=== PATIENT | male | born 1970 | race Caucasian/White ===

== ENCOUNTER 2020-04-17 09:13 | Outpatient (CLI) | payer OTHER, SELFPAY ==
--- NOTE | 2020-04-17 10:30 | NEURO_ITS ---
Patient Number: [id number] Impression: # Complains of numbness of upper and lower extremities. # Bilateral Carpal Tunnel Syndrome. # Mild delayed terminal latencies in feet. # Normal needle/EMG exam. # Clinical correlation recommended. Nerve Conduction Studies Anti Sensory Summary Table Stim Site NR Peak (ms) P-T Amp (?V) Site1 Site2 Delta-P (ms) Dist (cm) Ramesh (m/s) Left Median Anti Sensory (2-3nd Digit) Wrist 4.2 35.3 Wrist 2-3nd Digit 4.2 14.0 33 Wrist 4.4 49.7 Wrist 2-3nd Digit 4.2 14.0 33 Right Median Anti Sensory (2-3nd Digit) Wrist 4.1 27.9 Wrist 2-3nd Digit 4.1 14.0 34 Wrist 4.0 45.4 Wrist 2-3nd Digit 4.1 14.0 34 Left Radial Anti Sensory (Base 1st Digit) Wrist 2.8 9.1 Wrist Base 1st Digit 2.8 0.0 Right Radial Anti Sensory (Base 1st Digit) Wrist 2.6 29.9 Wrist Base 1st Digit 2.6 0.0 Left Sup Fibular Anti Sensory (Ant Lat Mall) 14 cm 3.6 16.7 14 cm Ant Lat Mall 3.6 16.0 44 Right Sup Fibular Anti Sensory (Ant Lat Mall) 14 cm 3.7 49.4 14 cm Ant Lat Mall 3.7 16.0 43 Left Sural Anti Sensory (Lat Mall) Calf 3.8 6.8 Calf Lat Mall 3.8 16.0 42 Right Sural Anti Sensory (Lat Mall) Calf 3.7 6.6 Calf Lat Mall 3.7 16.0 43 Left Ulnar Anti Sensory (5th Digit) Wrist 3.2 42.9 Wrist 5th Digit 3.2 14.0 44 Right Ulnar Anti Sensory (5th Digit) Wrist 3.2 42.7 Wrist 5th Digit 3.2 14.0 44 Motor Summary Table Stim Site NR Onset (ms) O-P Amp (mV) Site1 Site2 Delta-0 (ms) Dist (cm) Ramesh (m/s) Left Median Motor (Abd Poll Brev) Wrist 4.8 2.4 Elbow Wrist 5.5 32.0 58 Elbow 10.3 6.1 Right Median Motor (Abd Poll Brev) Wrist 4.3 1.8 Elbow Wrist 5.3 30.0 57 Elbow 9.6 1.8 Left Peroneal Motor (Vastus Med) Ankle 5.0 2.7 Popit Ankle 8.9 43.0 48 Popit 13.9 2.3 Right Peroneal Motor (Vastus Med) Ankle 4.8 1.6 Popit Ankle 8.7 42.0 48 Popit 13.5 1.7 Left Tibial Motor (Abd Corrigan Brev) Ankle 4.9 5.8 Knee Ankle 9.6 46.0 48 Knee 14.5 3.6 Right Tibial Motor (Abd Corrigan Brev) Ankle 5.2 5.1 Knee Ankle 8.8 45.0 51 Knee 14.0 2.9 Left Ulnar Motor (Abd Dig Minimi) Wrist 3.0 4.4 A Elbow Wrist 5.6 33.0 59 A Elbow 8.6 3.2 Right Ulnar Motor (Abd Dig Minimi) Wrist 3.0 5.0 A Elbow Wrist 5.5 32.0 58 A Elbow 8.5 3.8 F Wave Studies NR F-Lat (ms) L-R F-Lat (ms) Left Median (Mrkrs) (Abd Poll Brev) 32.16 0.53 Right Median (Mrkrs) (Abd Poll Brev) 31.64 0.53 Left Peroneal (Mrkrs) (EDB) 56.02 0.19 Right Peroneal (Mrkrs) (EDB) 56.21 0.19 Left Tibial (Mrkrs) (Abd Hallucis) 56.50 0.59 Right Tibial (Mrkrs) (Abd Hallucis) 55.91 0.59 Left Ulnar (Mrkrs) (Abd Dig Min) 32.81 0.00 Right Ulnar (Mrkrs) (Abd Dig Min) 32.81 0.00 EMG Side Muscle Nerve Root Ins Act Fibs Amp Dur Recrt Comment Right 1stDorInt Ulnar C8-T1 Nml Nml Nml Nml Nml Right Ext Indicis Radial (Post Int) C7-8 Nml Nml Nml Nml Nml Right Ext Digitorum Radial (Post Int) C7-8 Nml Nml Nml Nml Nml Right BrachioRad Radial C5-6 Nml Nml Nml Nml Nml Right PronatorTeres Median C6-7 Nml Nml Nml Nml Nml Right Abd Poll Brev Median C8-T1 Nml Nml Nml Nml Nml Right AntTibialis Dp Br Fibular L4-5 Nml Nml Nml
== END 2020-04-17 09:14 | disposition home or self-care (01) ==
PROVIDERS: PCP Family Medicine; Visit Provider Family Medicine
DX: G56.03 Carpal tunnel syndrome, bilateral upper limbs (principal)
CPT/HCPCS: 95886; 95913

== ENCOUNTER 2023-07-08 01:59 | Day surgery (SDC) | payer OTHER, SELFPAY ==
--- NOTE | 2023-07-01 16:56 | PM.HPGS ---
History of Present Illness History of Present Illness Consent: Risks, benefits, and alternatives have been discussed and questions answered. Patient agrees to proceed with procedure. Chief complaint: right spermatocele Narrative: Vincent Mccauley is a 53 year old male recently as a presented to our practice with a 3-4 month history of right scrotal swelling. He notices by incidental examination. for sometime in May 2023 where physical exam was consistent with a 3-4 cm spermatocele. After discussion of therapeutic options he has elected for a spermatocelectomy. discussed alternative options including observation aspiration. He is aware the risks of this procedure including, but not limited to, recurrence of scrotal swellings, incisional infection and scrotal hematoma. Review of Systems Cardiovascular: Cardiovascular: Denies chest pain, Denies lightheadedness, Denies palpitations and Denies dyspnea Respiratory: Respiratory: Denies dyspnea Gastrointestinal: Gastrointestinal: Denies diarrhea, Denies nausea and Denies vomiting Genitourinary: Genitourinary: Denies hematuria and Denies dysuria Endocrine: Endocrine: Denies palpitations [facility] Past Medical History Medical History (Updated 07/01/23 @ 17:00 by Edis Mesa MD) GERD (gastroesophageal reflux disease) Hypothyroidism Neuropathy right foot Surgical History Surgical History History of cholecystectomy 2008 S/P trigger finger release Right middle finger [place] teeth removed Family History Family History Mother Hypertension Carcinoma of colon Metastatic lung carcinoma Social History Social History Smoking packs per day: 1 Smoking cigarettes per day: 20.0 Years smoked: 16 Smoking pack-years: 16.00 Smoking status: Former smoker Tobacco type: cigarettes Alcohol intake: current Alcohol use details: Social Substance use: never Substance use type: does not use Lack of Transportation: No Lack of Food: Never True Current Housing: I Have Housing Concerned About Future Housing: No Difficulty Paying Gas/Electric Bills: No Difficulty Paying for Meds: No Currently Unemployed: No Education: High School Diploma/GED Living arrangements: with family Occupation/Education: occupation Gender identity (if verbalized by the patient): Male Sexual Orientation (if Verbalized by the Patient): Straight or Heterosexual Spiritual care concerns: No Meds Home Medications and Allergies Home Medications Medication Instructions Recorded Confirmed Type gabapentin 300 mg capsule 300 mg PO PRN PRN Pain 09/10/20 06/21/23 History ascorbic acid (vitamin C) 500 mg mg PO 08/19/22 06/21/23 History capsule cholecalciferol (vitamin D3) 125 125 mcg PO DAILY 08/19/22 06/21/23 History mcg (5,000 unit) capsule mecobalamin (vitamin B12) 1,000 1,000 mcg PO DAILY 08/19/22 06/21/23 History mcg chewable tablet multivitamin 1 tablet PO DAILY 08/19/22 06/21/23 History omega 3-ycu-jwz-fish oil 1,000 mg 2 cap PO DAILY 08/19/22 06/21/23 History (120 mg-180 mg) capsule (Fish Oil) mometasone 0.1 % topical cream 1 applic topical .twice daily PRN 08/20/22 06/21/23 Rx rash #45 grams levothyroxine 50 mcg tablet 50 mcg PO DAILY #90 tabs 02/15/23 06/21/23 Rx amlodipine 5 mg tablet 5 mg PO DAILY #90 tabs 06/21/23 06/21/23 Rx lisinopril 20 mg tablet 20 mg PO DAILY #90 tabs 06/21/23 06/21/23 Rx Allergies Allergy/AdvReac Type Severity Reaction Status Date / Time No Known Allergies Allergy Verified 06/21/23 13:41 Exam Const: General: no acute distress Resp: Effort & Inspection: normal respiratory effort GI: Inspection: non-distended GI Palp: No abdominal tenderness and No Guarding due to palpation present (GI) Auscultation: normal bowel sounds :
[2023-07-06 10:06] VITALS: BMI 34.0
--- NOTE | 2023-07-06 10:26 | PC.NURSE ---
Report to the Outpatient Waiting Room, entrance under the green pavilion located off [facility], at 0600 on 07-08-23. Planned Procedure Time: 0730. Time changes happen often and if your time is changed the preop area will call you the afternoon before. - You and your visitor will be asked to self-screen and do not enter if you have any COVID symptoms. - A mask is optional within the hospital at this time. Patients may have clear liquids (water, carbonated beverages, clear teas, apple juice) until 3 hours prior to surgery with a maximum of 20 ounces. 0430 - No food from midnight until time of surgery - Infants may have breast milk until 4 hours before surgery, formula 6 hours prior to surgery. - Children will be allowed to drink immediately following surgery. If applicable, please bring a bottle or sippy cup to assist with drinking. Juice, water, soda, and popsicles are readily available. For infants on formula, please bring formula the day of surgery. Pacifiers are allowed. Take the following medications with a SIP of water the morning of surgery: levothyroxine, amlodipine DO NOT STOP ANY OF YOUR OTHER PRESCRIPTION MEDICATIONS PRIOR TO SURGERY ?EXCEPT THE FOLLOWING Medications to discontinue per physician: vitamins and supplements Date to take last dose: 07-06-23 Please no make-up, nail congolese, hairspray, perfume, deodorant, or body powder the day of surgery. No jewelry (including any body piercings) or valuables the day of surgery, leave them at home. Please take a shower or bath the night before, or the morning of, surgery with an antibacterial soap. Wear comfortable, loose fitting clothing. Children are encouraged to wear pajamas. - Jewelry must be removed prior to entering the operating room. Rings and piercings that are not removed may be cut off. - The hospital will not accept responsibility for valuables. - Please leave all valuables, including medications, at home the day of surgery. If you are going home after surgery, a licensed local hazmat driver must drive you home. - NO public transportation without another adult if you receive anesthesia. - We recommend that an adult stay with you for 24 hours following discharge. - We also recommend that you do not drive, make important decision, drink alcoholic beverages, or take any drugs that were not prescribed by your health care provider for at least 24 hours after your discharge time. For Pediatric surgeries, we recommend two adults accompany the child home. Follow any additional instructions given to you from your surgeon. If you or anyone in your household have experienced Covid symptoms in the past week, please notify your surgeon or the nurse liaison at the phone number below for possible testing. Telephone instructions given to Hans Mccauley and asked if any additional questions and then verbalized understanding. Patient advised to call surgeon office or pre surgery nurse liaison [phone] if any additional questions.
[2023-07-08] VITALS (9 sets, daily range): BP systolic 108–134; BP diastolic 64–82; PULSE 55–74; RESP 12–18; TEMP 36.2–36.6; O2SAT 94–97; BMI 33.9
--- NOTE | 2023-07-08 05:51 | ECG_ITS ---
Measurements Intervals [place] Rate: 53 P: 33 UT: 174 QRS: 12 QRSD: 101 T: 31 QT: 434 QTc: 408 Interpretive Statements SINUS BRADYCARDIA NO PREVIOUS ECG AVAILABLE FOR COMPARISON Electronically Signed On 07-08-2023 9:21:01 [employer] by Ivet Nguyen M.D.
--- NOTE | 2023-07-08 06:37 | WPDANESEPPF ---
Anes - Initial Pre Proc Eval Procedure: Operation Date: 07/08/23 07:30 Proposed Procedures p Right Spermatocelectomy - Edis Mesa MD Date/Time: 07/08/23 06:37 Surgeon: Edis Mesa MD Pre Op Diagnosis: right spermatocele Patient Data Age: 53 Gender: M Height: 1.91 m Weight: 123.38 kg Allergies Allergy/AdvReac Type Severity Reaction Status Date / Time No Known Allergies Allergy Verified 07/08/23 06:19 Home Medications Medication Instructions Recorded Confirmed Type gabapentin 300 mg capsule 300 mg PO PRN PRN Pain 09/10/20 07/08/23 History ascorbic acid (vitamin C) 500 mg 1,500 mg PO DAILY 08/19/22 07/08/23 History capsule cholecalciferol (vitamin D3) 125 125 mcg PO DAILY 08/19/22 07/08/23 History mcg (5,000 unit) capsule mecobalamin (vitamin B12) 1,000 1,000 mcg PO DAILY 08/19/22 07/08/23 History mcg chewable tablet multivitamin 1 tablet PO DAILY 08/19/22 07/08/23 History omega 5-fik-bty-fish oil 1,000 mg 2 cap PO DAILY 08/19/22 07/08/23 History (120 mg-180 mg) capsule (Fish Oil) mometasone 0.1 % topical cream 1 applic topical .twice daily PRN 08/20/22 07/08/23 Rx rash #45 grams levothyroxine 50 mcg tablet 50 mcg PO DAILY #90 tabs 02/15/23 07/08/23 Rx amlodipine 5 mg tablet 5 mg PO DAILY #90 tabs 06/21/23 07/08/23 Rx lisinopril 20 mg tablet 20 mg PO DAILY #90 tabs 06/21/23 07/08/23 Rx Patient hx anesthesia problems: none Family hx anesthesia problems: none Results Review: All pre-operative results and documents have been reviewed as part of the pre-operative evaluation. [facility] Past Medical History Medical History (Updated 07/01/23 @ 17:00 by Edis Mesa MD) GERD (gastroesophageal reflux disease) Hypothyroidism Neuropathy right foot Surgical History Surgical History History of cholecystectomy 2008 S/P trigger finger release Right middle finger [place] teeth removed Family History Family History Mother Hypertension Carcinoma of colon Metastatic lung carcinoma Social History Social History Smoking packs per day: 1.5 Smoking cigarettes per day: 30.0 Years smoked: 16 Smoking pack-years: 24.00 Smoking status: Former smoker Tobacco type: cigarettes Smoking end date: 07/05/98 Alcohol intake: never Alcohol use details: Social Substance use: never Substance use type: does not use Lack of Transportation: No Lack of Food: Never True Current Housing: I Have Housing Concerned About Future Housing: No Difficulty Paying Gas/Electric Bills: No Difficulty Paying for Meds: No Currently Unemployed: No Education: High School Diploma/GED Living arrangements: with family Occupation/Education: occupation Gender identity (if verbalized by the patient): Male Sexual Orientation (if Verbalized by the Patient): Straight or Heterosexual Spiritual care concerns: No Anes - Eval Final PreProcedure Day of Procedure 07/08/23 06:37 Patient weight: obese Heart: regular rate and rhythm Lungs: clear to auscultation Airway: Mallampati scale class II Neurological: alert and oriented Last oral intake: >/= 8 hours ASA classification: III Emergent: no Anesthetic plan: proceed Anesthesia type and monitoring: general LMA and standard monitoring Results Review: All pre-operative results and documents have been reviewed as part of the pre-operative evaluation. Informed Consent: The patient's anesthetic plan and its attendant risks and benefits were discussed with the patient/family/POA. Questions were solicited and answers provided to the satisfaction of the patient/family/POA.
--- NOTE | 2023-07-08 06:55 | WPDHPUPDATE1 ---
History and Physical Update Update Date/Time: 07/08/23 06:55 History and Physical has been reviewed, including an updated exam of the patient. There are NO changes in the patient's condition. Risks, benefits, and alternatives have been discussed and questions answered. Patient agrees to proceed with procedure.
[2023-07-08] MEDS: ceFAZolin 3 GM/D5W 100 ML 100 ML IVPB (07:27)
[2023-07-08] MEDS: LACTATED RINGERS 1,000 ML 30 ML IV CONT ×2 (07:30→08:06)
[2023-07-08] MEDS: LIDOCAINE HCL 1% LOCAL INJ 20 ML VIAL 5 ML INFILTRATE (07:57)
--- NOTE | 2023-07-08 08:13 | W.PM.PROC2 ---
Procedure Note - Detailed Date of Procedure 07/08/23 Pre-op Diagnosis Right spermatocele Post-op Diagnosis Same Procedure Performed Right spermatocelectomy Surgeon Edis Mesa MD Anesthesia General Description of Procedure The patient was brought to the operative suite where he was prepped and draped in routine sterile fashion while in a supine position after the uneventful induction of a general LMA anesthetic. An incision was made in the median raphe of the scrotum and dissection was carried into the right tunica vaginalis. There is no appreciable hydrocele but a moderate-large right spermatocele arising from the epididymis. This spermatocele is dissected from the spermatic cord and testicle to its origin from the epididymis. It is transected at its origin with care taken to avoid any injury to the testicle or epididymis. Care was taken to avoid compromise to vessels in the spermatic cord. The testicle was examined and found to be both visibly and palpably normal. The testicle was restore returned to an orthotopic positioned. The dartos muscle was closed with a running 4-0 chromic and the skin was likewise closed with a running 4-0 chromic. Estimated blood loss throughout this procedure was []cc. Patient tolerated the procedure well and was taken to the recovery room in good condition. Estimated Blood Loss 5.0 Pathology None sent Complications No immediate complications
[2023-07-08] MEDS: oxyCODONE HCL (*CRX) 5 MG TAB IR PO (09:29)
== END 2023-07-08 10:20 | disposition home or self-care (01) ==
PROVIDERS: PCP Family Medicine; Visit Provider Urology
PROC: (CPT 54840; principal; 2023-07-08 07:30)
DX: N43.41 Spermatocele of epididymis, single (principal); E03.9 Hypothyroidism, unspecified; K21.9 Gastro-esophageal reflux disease without esophagitis; G62.9 Polyneuropathy, unspecified; Z87.891 Personal history of nicotine dependence; E66.9 Obesity, unspecified; Z68.33 Body mass index [BMI] 33.0-33.9, adult
CPT/HCPCS: 54840; 88304; 93005; A9270; J0690; J1100; J2250; J2405; J2704; J3010; J7120

== ENCOUNTER 2023-09-15 00:20 | Day surgery (SDC) | payer OTHER, SELFPAY ==
[2023-08-23 11:46] VITALS: BMI 33.1
--- NOTE | 2023-09-13 10:57 | SUR.PREOP ---
Patient called regarding upcoming procedure. Reviewed preop instructions, appointment times, and procedure prep.
[2023-09-15 08:12] VITALS: BP 127/85; PULSE 71; RESP 18; TEMP 36.1; O2SAT 98
[2023-09-15] MEDS: LACTATED RINGERS 1,000 ML 150 ML IV CONT (08:21)
--- NOTE | 2023-09-15 08:54 | PM.HPGS ---
History of Present Illness History of Present Illness Consent: Risks, benefits, and alternatives have been discussed and questions answered. Patient agrees to proceed with procedure. Chief complaint: neoplasm screening Narrative: Vincent Mccauley is a 53 year old male here for first screening colonoscopy Review of Systems Constitutional: Constitutional: Denies headache(s) and Denies weakness Eyes: Eyes: Denies blurry vision ENT: Reports Normal hearing present, Denies headache(s) and Denies neck pain Cardiovascular: Cardiovascular: Denies chest pain and Denies dyspnea Respiratory: Respiratory: Denies dyspnea Gastrointestinal: Gastrointestinal: Reports no additional gastrointestinal complaints Genitourinary: Genitourinary: Denies dysuria Musculoskeletal: Musculoskeletal: Denies neck pain Integumentary/Breasts: Skin/Breast: Denies dry skin Neurologic: Reports Normal hearing present, Denies headache(s) and Denies weakness Psychiatric: Psychiatric: Denies anxiety Endocrine: Endocrine: Denies change in body appearance Hematologic/Lymphatic: Hematologic/Lymphatic: Denies easy bleeding Allergic/Immunologic: Allergic/Immunologic: Denies urticaria PMFSH Past Medical History Medical History (Updated 07/16/23 @ 13:41 by Derik Navarrete MD) GERD (gastroesophageal reflux disease) Hypothyroidism Mixed hyperlipidemia Neuropathy right foot Spermatocele of epididymis Surgical History Surgical History (Updated 07/16/23 @ 13:38 by Derik Navarrete MD) History of cholecystectomy 2008 History of surgery Spermatocelectomy on 07/08/2023 S/P trigger finger release Right middle finger [place] teeth removed Family History Family History Mother Hypertension Carcinoma of colon Metastatic lung carcinoma Social History Social History Smoking packs per day: 1.5 Smoking cigarettes per day: 30.0 Years smoked: 16 Smoking pack-years: 24.00 Smoking status: Former smoker Tobacco type: cigarettes Smoking end date: 07/05/98 Alcohol intake: never Alcohol use details: Social Substance use: never Substance use type: does not use Lack of Transportation: No Lack of Food: Never True Current Housing: I Have Housing Concerned About Future Housing: No Difficulty Paying Gas/Electric Bills: No Difficulty Paying for Meds: No Currently Unemployed: No Education: High School Diploma/GED Living arrangements: with family Occupation/Education: occupation Gender identity (if verbalized by the patient): Male Sexual Orientation (if Verbalized by the Patient): Straight or Heterosexual Spiritual care concerns: No Meds Home Medications and Allergies Home Medications Medication Instructions Recorded Confirmed Type gabapentin 300 mg capsule 300 mg PO PRN PRN Pain 09/10/20 08/23/23 History ascorbic acid (vitamin C) 500 mg 1,500 mg PO DAILY 08/19/22 08/23/23 History capsule cholecalciferol (vitamin D3) 125 125 mcg PO DAILY 08/19/22 08/23/23 History mcg (5,000 unit) capsule mecobalamin (vitamin B12) 1,000 1,000 mcg PO DAILY 08/19/22 08/23/23 History mcg chewable tablet multivitamin 1 tablet PO DAILY 08/19/22 08/23/23 History omega 6-cbw-mis-fish oil 1,000 mg 2 cap PO DAILY 08/19/22 08/23/23 History (120 mg-180 mg) capsule (Fish Oil) mometasone 0.1 % topical cream 1 applic topical .twice daily PRN 08/20/22 08/23/23 Rx rash #45 grams levothyroxine 50 mcg tablet 50 mcg PO DAILY #90 tabs 02/15/23 08/23/23 Rx amlodipine 5 mg tablet 5 mg PO DAILY #90 tabs 06/21/23 08/23/23 Rx lisinopril 20 mg tablet 20 mg PO DAILY #90 tabs 06/21/23 08/23/23 Rx Allergies Allergy/AdvReac Type Severity Reaction Status Date / Time No Known Allergies Allergy Verified 09/15/23 08:11 Vital Signs Vital Signs - 24 hr 09/15/23 08:12 Temperature 97 F L Pulse Rate
--- NOTE | 2023-09-15 09:03 | WPDANESEPPF ---
Anes - Initial Pre Proc Eval Procedure: Operation Date: 09/15/23 09:30 Proposed Procedures p Screening Colonoscopy - Alex Sarabia MD Date/Time: 09/15/23 09:03 Surgeon: Alex Sarabia MD Pre Op Diagnosis: neoplasm screening Patient Data Age: 53 Gender: M Height: 1.91 m Weight: 119.8 kg Last Vital Signs Temp 97 F L 09/15/23 08:12 Pulse 71 09/15/23 08:12 Resp 18 09/15/23 08:12 BP 127/85 09/15/23 08:12 Pulse Ox 98 09/15/23 08:12 O2 Del Method Room Air 09/15/23 08:12 Allergies Allergy/AdvReac Type Severity Reaction Status Date / Time No Known Allergies Allergy Verified 09/15/23 08:11 Home Medications Medication Instructions Recorded Confirmed Type gabapentin 300 mg capsule 300 mg PO PRN PRN Pain 09/10/20 08/23/23 History ascorbic acid (vitamin C) 500 mg 1,500 mg PO DAILY 08/19/22 08/23/23 History capsule cholecalciferol (vitamin D3) 125 125 mcg PO DAILY 08/19/22 08/23/23 History mcg (5,000 unit) capsule mecobalamin (vitamin B12) 1,000 1,000 mcg PO DAILY 08/19/22 08/23/23 History mcg chewable tablet multivitamin 1 tablet PO DAILY 08/19/22 08/23/23 History omega 8-qrl-ect-fish oil 1,000 mg 2 cap PO DAILY 08/19/22 08/23/23 History (120 mg-180 mg) capsule (Fish Oil) mometasone 0.1 % topical cream 1 applic topical .twice daily PRN 08/20/22 08/23/23 Rx rash #45 grams levothyroxine 50 mcg tablet 50 mcg PO DAILY #90 tabs 02/15/23 08/23/23 Rx amlodipine 5 mg tablet 5 mg PO DAILY #90 tabs 06/21/23 08/23/23 Rx lisinopril 20 mg tablet 20 mg PO DAILY #90 tabs 06/21/23 08/23/23 Rx Patient hx anesthesia problems: none Family hx anesthesia problems: none Results Review: All pre-operative results and documents have been reviewed as part of the pre-operative evaluation. PMFSH Past Medical History Medical History (Updated 07/16/23 @ 13:41 by Derik Navarrete MD) GERD (gastroesophageal reflux disease) Hypothyroidism Mixed hyperlipidemia Neuropathy right foot Spermatocele of epididymis Surgical History Surgical History (Updated 07/16/23 @ 13:38 by Derik Navarrete MD) History of cholecystectomy 2007 History of surgery Spermatocelectomy on 07/08/2023 S/P trigger finger release Right middle finger [place] teeth removed Family History Family History Mother Hypertension Carcinoma of colon Metastatic lung carcinoma Social History Social History Smoking packs per day: 1.5 Smoking cigarettes per day: 30.0 Years smoked: 16 Smoking pack-years: 24.00 Smoking status: Former smoker Tobacco type: cigarettes Smoking end date: 07/05/98 Alcohol intake: never Alcohol use details: Social Substance use: never Substance use type: does not use Lack of Transportation: No Lack of Food: Never True Current Housing: I Have Housing Concerned About Future Housing: No Difficulty Paying Gas/Electric Bills: No Difficulty Paying for Meds: No Currently Unemployed: No Education: High School Diploma/GED Living arrangements: with family Occupation/Education: occupation Gender identity (if verbalized by the patient): Male Sexual Orientation (if Verbalized by the Patient): Straight or Heterosexual Spiritual care concerns: No Anes - Eval Final PreProcedure Day of Procedure 09/15/23 09:03 Patient weight: obese Heart: regular rate and rhythm Lungs: clear to auscultation Airway: Mallampati scale class II Neurological: alert and oriented Last oral intake: >/= 8 hours ASA classification: III Emergent: no Anesthetic plan: proceed Anesthesia type and monitoring: general GIVS and standard monitoring Results Review: All pre-operative results and documents have been reviewed as part of the pre-operative evaluation. Informed Consent: The patient's anesthetic plan and its attendant risks an
[2023-09-15 09:34] VITALS: BP 113/76; PULSE 84; RESP 17; O2SAT 98
[2023-09-15 09:44] VITALS: BP 120/76; PULSE 78; RESP 17; O2SAT 96
[2023-09-15 09:49] VITALS: BP 120/76; PULSE 77; RESP 14; O2SAT 96
== END 2023-09-15 10:10 | disposition home or self-care (01) ==
PROVIDERS: PCP Family Medicine; Visit Provider Internal Medicine Gastroenterology
PROC: 0DJD8ZZ Inspection of Lower Intestinal Tract, Via Natural or Artificial Opening Endoscopic (ICD-10-PCS; CPT 45378; principal; 2023-09-15 09:30)
DX: Z12.11 Encounter for screening for malignant neoplasm of colon (principal); D12.2 Benign neoplasm of ascending colon; D12.3 Benign neoplasm of transverse colon; D12.4 Benign neoplasm of descending colon; D12.5 Benign neoplasm of sigmoid colon; E78.2 Mixed hyperlipidemia; E03.9 Hypothyroidism, unspecified; K21.9 Gastro-esophageal reflux disease without esophagitis; G62.9 Polyneuropathy, unspecified; Z87.891 Personal history of nicotine dependence; E66.9 Obesity, unspecified; Z68.33 Body mass index [BMI] 33.0-33.9, adult
CPT/HCPCS: 45385; 88305; J2704; J7120

== ENCOUNTER 2025-06-04 12:08 | Emergency (ER) | payer OTHER, SELFPAY ==
--- NOTE | ~2025-06-04 | CT_ITS ---
EXAMINATION: CT abdomen pelvis wo con DATE: 06/04/2025 15:04 INDICATION: Left flank pain TECHNIQUE: Computed tomography (CT) of the chest was performed without intravenous contrast. The dose-length product was 410.33 mGy-cm. Automated exposure control and iterative reconstruction technique were employed. COMPARISON: None FINDINGS: Lung bases unremarkable. Heart size normal. No significant pleural or pericardial effusion. There is a small low-density lesion in the left kidney, most likely benign cysts. Status post cholecystectomy. The liver, spleen, pancreas, adrenal glands and right kidney are unremarkable. No ureteral or renal stones. Nonobstructive bowel gas pattern. Normal appendix. No significant vascular abnormality. No lymphadenopathy. No abnormal pelvic masses or fluid collections. No evidence for hernia. There is mild-moderate thoracic and lumbar spondylosis. No acute osseous abnormality. IMPRESSION: 1. No acute abdominal abnormality. Reviewed, dictated and finalized at location O. ITORY KEEPER
[2025-06-04 12:18] VITALS: BP 160/77; PULSE 55; RESP 16; TEMP 36.2; O2SAT 100
--- OUTSIDE RECORDS SUMMARY | 2025-06-04 13:29 | XMS_ITS | Clinical Summary ---
Author Organization [facility] Address [address] [place] [id number] Care Team Providers Care Adobe Layer Helper Name Role Phone Derik Navarrete MD Primary Care Provider [phone] Allergies No known active allergies Medications levothyroxine 50 MCG tablet Take 50 mcg by mouth every morning. 11/05/2021 Active fish oil 1000 MG Cap capsule Take 1,000 mg by mouth daily. unsure Active Cholecalciferol (VITAMIN D) 50 MCG (2000 UT) Tab Unsure of dose Active Cyanocobalamin (VITAMIN B-12) 50 MCG Tab Unsure of dose Active Ascorbic Acid (VITAMIN C) 100 MG tablet Take 500 mg by mouth daily. Unsure of dose Active Active Problems No known active problems Family History Medical History Relation Comments Cancer Maternal Grandfather colon Cancer Mother colon Relation Status Comments Maternal Grandfather Mother Social History Tobacco Use Types Packs/Day Years Used Date Smoking Tobacco: Former Cigarettes 1 3 - 1998 Smokeless Tobacco: Never Tobacco Cessation:Counseling Given: Yes Comments:non smoker Alcohol Use Standard Drinks/Week Comments Not Currently 0 (1 standard drink = 0.6 oz pur e alcohol) PHQ-2 Answer Date Recorded PHQ-2 Score - If the patient scores above 3, please move on to questions 3-9 0 01/12/2022 Sex and Gender Information Value Date Recorded Sex Assigned at Not on file Legal Sex Male 11:27 AM CDT Gender Identity Not on file Sexual Orientation Not on file Last Filed Vital Signs Vital Sign Reading Time Taken Comments Blood Pressure 160/93 01/12/2022 8:39 AM CDT Pulse 55 01/12/2022 8:39 AM CDT Temperature 36.7 C (98 F) 01/12/2022 8:38 AM CDT Respiratory Rate 22 01/12/2022 8:38 AM CDT Oxygen Saturation 100% 01/12/2022 8:38 AM CDT Inhaled Oxygen Concentration - - Weight 123.8 kg (273 lb) 01/12/2022 8:38 AM CDT Height 190.5 cm (6' 3) 01/12/2022 8:38 AM CDT Body Mass Index 34.12 01/12/2022 8:38 AM CDT Plan of Treatment Health Maintenance Due Date Last Done Comments Colorectal Cancer Screening Colonoscopy (10 Years) 1968 Annual Physical 01/31/1971 Hepatitis C 01/31/1986 Hepatitis A Vaccines (1 of 2 - Risk 2-dose series) 01/31/1987 Hepatitis B Vaccines (1 of 3 - 19+ 3-dose series) 01/31/1987 Pneumococcal Vaccine: 50+ Years (1 of 1 - PCV) 01/31/2018 Zoster Vaccines (1 of 2) 01/31/2018 COVID-19 Vaccine (3 - 2024-2 6 season) 2025 10/22/2020, 10/03/2020 Influenza Adult (#1) 2025 05/08/2017 DTaP, Tdap and Td Vaccines ( 2 - Td or Tdap) 08/09/2030 08/09/2020 Meningococcal B Vaccine Aged Out No l onger eligible based on patient's age to complete this topic Meningococcal Vaccine Aged Out No jeovanny robert eligible based on patient's age to complete this topic RSV Immunizations Under 20 Months Aged Out No longer eligible b ased on patient's age to complete this topic Insurance [employer] Care Teams Adobe Layer Helper Relationship Specialty Start Date End Date Derik Navarrete MD [address] [place] [address] PCP - General FAMILY PRACTICE 11/24/21
--- OUTSIDE RECORDS SUMMARY | 2025-06-04 14:32 | XMS_ITS | Clinical Summary ---
Author Organization [facility] Address [address] [place] [id number] Care Team Providers Care Cloth Baler Name Role Phone Derik Navarrete MD Primary Care Provider [phone] Allergies No known active allergies Medications levothyroxine [...] complete this topic Insurance [employer] Care Teams Cloth Baler Relationship Specialty Start Date End Date Derik Navarrete MD [address] [place] [address] PCP - General FAMILY PRACTICE 11/24/21
--- NOTE | 2025-06-04 14:58 | ED.BACK ---
HPI - Back Pain/Injury General Chief Complaint: Back Pain/Injury Stated Complaint: lower back pain, left sided Time Seen by Provider: 06/04/25 13:08 Source: patient Mode of arrival: ambulatory Limitations: no limitations History of Present Illness HPI Narrative: Patient is a 55-year-old male who presents the ED with report of left lower back pain. Patient reports having pain for the past 1 week. States pain has been persistent, denies aggravating or alleviating factors. Has tried taking ibuprofen at home without improvement. Denies any fall or injury. Denies radiation of pain down leg. Does report slight discoloration and malodor to urine, but denies hematuria, dysuria. Denies abdominal pain, nausea, vomiting, bowel or bladder incontinence, numbness. Denies history of kidney stones. Related Data Home Medications ?Medication ?Instructions ?Recorded ?Confirmed ?Last Taken ?Type gabapentin 300 mg capsule 300 mg PO PRN PRN Pain 09/10/20 05/02/24 07/07/23 History ascorbic acid (vitamin C) 500 mg 1,500 mg PO DAILY 08/19/22 05/02/24 07/04/23 History capsule cholecalciferol (vitamin D3) 125 125 mcg PO DAILY 08/19/22 05/02/24 07/04/23 History mcg (5,000 unit) capsule mecobalamin (vitamin B12) 1,000 1,000 mcg PO DAILY 08/19/22 05/02/24 07/04/23 History mcg chewable tablet multivitamin 1 tablet PO DAILY 08/19/22 05/02/24 07/04/23 History omega 1-dpw-ldt-fish oil 1,000 mg 2 cap PO DAILY 08/19/22 05/02/24 07/04/23 History (120 mg-180 mg) capsule (Fish Oil) Allergies Allergy/AdvReac Type Severity Reaction Status Date / Time No Known Allergies Allergy Verified 06/04/25 12:21 Review of Systems Review of Systems: All systems reviewed & are unremarkable except as noted in HPI. All systems reviewed & are unremarkable except as noted in HPI and below PMFSH Past Medical History Medical History Mixed hyperlipidemia Spermatocele of epididymis GERD (gastroesophageal reflux disease) Neuropathy right foot Hypothyroidism Surgical History Surgical History History of surgery Spermatocelectomy on 07/08/2023 [place] teeth removed History of cholecystectomy 2007 S/P trigger finger release Right middle finger Family History Family History Mother Hypertension Carcinoma of colon Metastatic lung carcinoma Social History Social History Smoking packs per day: 1.5 Smoking cigarettes per day: 30.0 Years smoked: 16 Smoking pack-years: 24.00 Smoking status: Former smoker Tobacco type: cigarettes Smoking end date: 07/05/98 Alcohol intake: never Alcohol use details: Social Substance use: never Substance use type: does not use Lack of Transportation: No Lack of Food: Never True Current Housing: I Have Housing Concerned About Future Housing: No Difficulty Paying Gas/Electric Bills: No Difficulty Paying for Meds: No Currently Unemployed: No Education: High School Diploma/GED Living arrangements: with family Occupation/Education: occupation Gender identity (if verbalized by the patient): Male Sexual Orientation (if Verbalized by the Patient): Straight or Heterosexual Spiritual care concerns: No Exam Narrative: GENERAL: Well appearing, well-nourished, non-toxic, in no acute distress. HEAD: Normocephalic, atraumatic. RESPIRATORY: Airway patent, respirations nonlabored. CARDIOVASCULAR: Regular rate and rhythm ABDOMINAL: Soft, nontender, nondistended. Normoactive BS. MUSCULOSKELETAL: Moves all extremities. No gross deformities. Mild tenderness to palpation in left flank/lumbosacral region. No midline lumbar spinal tenderness. No palpable bony deformities or step-offs. SKIN: Warm, dry, normal color. NEURO: A&O X3. Speech clear. Cranial nerves II-XII grossly intact. Steady gait. No ataxic movements. PSYCHIATRIC: Appropriate mood and affect. Normal interaction. Course Vital Signs Vital signs: Vital Signs Temperature 97.1 F L 06/04/25 12:18 Pulse Rate 55 L 06/04/25 12:18 Respiratory Rate 16 06/04/25 12:18 Blood Pressure 160/77 H 06/04/25 12:18 Pulse Oximetry 100 06/04/25 12:18 Oxygen Delivery Room Air 06/04/25 12:18 Temperature 98.1 F 06/04/25 16:33 Pulse Rate 55 L 06/04/25 16:33 Respiratory Rate 16 06/04/25 16:33 Blood Pressure 145/85 H 06/04/25 16:33 Pulse Oximetry 99 06/04/25 16:33 Oxygen Delivery Room Air 06/04/25 12:18 MDM - Back Pain/Injury MDM Narrative Medical decision making narrative: Patient presented to ED with 1 week history of left lower back pain, associated with some urinary complaints. Reports history of UTI, denies history of kidney stone. Vital signs stable upon arrival. Patient in no acute distress. Afebrile. Basic laboratory studies are fairly unremarkable. Cbc without leukocytosis or significant anemia. Creatinine 1.49. No records to compare to. UA without evidence of infection. CT scan of abdomen/pelvis was obtained and unremarkable. No significant abnormalities. No ureterolithiasis. No concerning findings. Mild spondylosis changes. Suspect musculoskeletal etiology. Will discharge with course of muscle relaxers, lidocaine patches. Advised to continue anti-inflammatories. Recommended follow-up with PCP for further evaluation. Patient in agreement w/ plan. Discharged in stable condition Medical Records Attestation: I reviewed the patient's medical records. Lab Data Attestation: I reviewed the patient's lab results. 06/04/25 14:51 06/04/25 14:51 Labs: Lab Results 06/04/25 06/04/25 Range/Units 14:50 14:51 WBC 4.3 L (4.5-10.0) K/mm3 RBC 5.13 (4.6-6.20) M/mm3 Hgb 15.5 (14.0-18.0) g/dL Hct 46.2 (42.0-52.0) % MCV 90.1 (80-100) fl MCH 30.2 (26-34) pg MCHC 33.5 (32-36) g/dl RDW 12.2 (11.5-14.5) % Plt Count 183 (150-375) k/mm3 MPV 10.0 (7.4-10.4) fl Immature Gran % (Auto) 0.2 (0-0.5) % Neut % (Auto) 51.8 (45.5-73.1) % Lymph % (Auto) 35.3 (18.3-44.2) % [place] % (Auto) 10.4 H (2.6-8.5) % Eos % (Auto) 1.6 (0-4.4) % Baso % (Auto) 0.7 (0.2-1.2) % Lymph # (Auto) 1.53 (0.9-3.2) K/mm3 [place] # (Auto) 0.5 (0.1-0.6) K/mm3 Eos # (Auto) 0.1 (0-0.3) K/mm3 Baso # (Auto) 0.0 (0.0-0.1) K/mm3 Abs Immat Gran (auto) 0.01 (0.00-0.031) K/mm3 Absolute Neuts (auto) 2.2 (1.3-6.7) K/mm3 Absolute Nucleated RBC 0.000 (0.0-0.012) K/mm3 Nucleated RBC % 0.0 (0.0-0.2) % Sodium 140 (137-145) mmol/L Potassium 4.0 (3.4-5.0) mmol/L Chloride 103 (98-107) mmol/L Carbon Dioxide 30 (22-30) mmol/L Anion Gap 7 (4-12) mmol/L BUN 19 (9-20) mg/dL Creatinine 1.49 H (0.7-1.3) mg/dL Estim Creat Clear Calc 68 ml/min Estimated GFR 49 L (59 - ) Glucose 88 (65-110) mg/dL Calcium 8.7 (8.4-10.2) mg/dL Urine Color Yellow (Yellow) Urine Appearance Clear (Clear) Urine pH 8.0 (5.0-9.0) Ur Specific [place] 1.011 (1.001-1.035) Urine Protein Negative (Negative) mg/dL Urine Glucose (UA) Negative (Negative) mg/dL Urine Ketones Negative (Negative) mg/dL Ur Blood (Man) Negative (Negative) Urine Nitrate Negative (Negative) Urine Bilirubin Negative (Negative) Urine Urobilinogen 0.2 (<2.0) mg/dL Leukocyte Esterase Rfl Negative (Negative) SYLVIA/UL Imaging Data Attestation: I personally reviewed and interpreted this imaging study as follows: Radiologist's impression: ITS Impressions Abdomen/Pelvis CT 06/04/25 15:06 IMPRESSION: 1. No acute abdominal abnormality. Discharge Plan Discharge Clinical Impression: Left lumbar pain Patient Disposition: Home Condition: Stable Instructions: Antibiotic Form, Low Back Strain (ED), Acute Low Back Pain (ED), Flank Pain (ED) Additional Instructions: Your workup here was reassuring. Continue Tylenol and Ibuprofen as needed for pain. You may use ice/heat, lidocaine patches to area of pain. Take muscle relaxers as needed and prescribed. Recommend taking these at night as they may cause sedation. Do not drive, operate heavy machinery, drink alcohol while on muscle relaxers as this may cause further sedation. Follow-up with your primary care doctor for further evaluation. Return to the ED if you experience worsening or severe pain, recurrent injury, numbness in groin or legs, going to the bathroom without meaning to, unable to keep down food or drink, difficulty urinating, blood in urine, or any other symptoms of concern. Patient Language: Austrian Prescriptions: New lidocaine 5 % adhesive patch,medicated 1 patch topical DAILY Qty: 15 0RF Rx Instructions: leave on most painful area for up to 12 hrs cyclobenzaprine 5 mg tablet 5 mg PO TID PRN (Reason: muscle spasm) Qty: 15 0RF No Action ascorbic acid (vitamin C) 500 mg capsule 1,500 mg PO DAILY Rx Instructions: 500mg 3 tablets daily mecobalamin (vitamin B12) 1,000 mcg tablet,chewable 1,000 mcg PO DAILY cholecalciferol (vitamin D3) 125 mcg (5,000 unit) capsule 125 mcg PO DAILY omega 8-dbg-jty-fish oil [Fish Oil] 1,000 mg (120 mg-180 mg) capsule 2 cap PO DAILY multivitamin Tablet 1 tablet PO DAILY azithromycin 250 mg tablet See Rx Instructions PO .COMPLEX Qty: 6 0RF Rx Instructions: For 250 mg dose pack: take 500 mg today (day 1), then 250 mg for 4 days (days 2-5) PO gabapentin 300 mg capsule 300 mg PO PRN PRN (Reason: Pain) mometasone 0.1 % cream 1 applic topical .twice daily PRN (Reason: rash) Qty: 45 0RF levothyroxine 50 mcg tablet 50 mcg PO DAILY Qty: 90 1RF amlodipine 5 mg tablet 5 mg PO DAILY Qty: 90 1RF Follow-up/Referrals: Derik Navarrete MD [Primary Care Provider, [facility]] Time of Disposition: 16:20
[2025-06-04 14:59] LABS: Hematocrit 46.2 % (42.0-52.0); Hemoglobin 15.5 g/dL (14.0-18.0); Immature Granulocyte Percent A 0.2 % (0-0.5); Lymphocytes Absolute Auto 1.53 K/mm3 (0.9-3.2); Mean Corpuscular HGB Conc 33.5 g/dl (32-36); Mean Corpuscular Hemoglobin 30.2 pg (26-34); Mean Corpuscular Volume 90.1 fl (80-100); Nucleated Red Blood Cells Absolute Auto 0.000 K/mm3 (0.0-0.012); Nucleated Red Blood Cells Perc 0.0 % (0.0-0.2); Platelet Count Result 183 k/mm3 (150-375); Red Blood Count 5.13 M/mm3 (4.6-6.20); White Blood Count 4.3 K/mm3 (4.5-10.0)
[2025-06-04 15:04] LABS: Add Urine Microscopic? NO; Appearance Urine Clear (Clear); Glucose Urine UA Negative (Negative); Leukocyte Esterase Ur Negative LEU/UL (Negative); Nitrate Urine Negative (Negative); Specific Grav Ur 1.011 (1.001-1.035)
[2025-06-04 15:09] LABS: Anion Gap 7 mmol/L (4-12); Blood Urea Nitrogen 19 mg/dL (9-20); Calcium 8.7 mg/dL (8.4-10.2); Carbon Dioxide 30 mmol/L (22-30); Chloride 103 mmol/L (98-107); Estimated CRCL calculation 68 ml/min; Estimated Glomerular Filt Rate 49; Glucose 88 mg/dL (65-110); Potassium 4.0 mmol/L (3.4-5.0); Sodium 140 mmol/L (137-145)
[2025-06-04] MEDS: HYDROcodone/acetaminophen (*CRX) 5-325 MG TABLET 1 TAB PO (15:23)
[2025-06-04] MEDS: KETOROLAC (*BKC) 60 MG/2 ML VIAL IM (15:35)
[2025-06-04 16:33] VITALS: BP 145/85; PULSE 55; RESP 16; TEMP 36.7; O2SAT 99
== END 2025-06-04 16:36 | disposition home or self-care (01) ==
PROVIDERS: Emergency Provider Physician Assistant; PCP Family Medicine
DX: M54.50 Low back pain, unspecified (principal); E78.5 Hyperlipidemia, unspecified; K21.9 Gastro-esophageal reflux disease without esophagitis; E03.9 Hypothyroidism, unspecified
CPT/HCPCS: 36415; 74176; 80048; 81003; 85025; 96372; 99284; A9270; J1885; J2919